=== PATIENT | female | born 1995 | race Caucasian/White ===

== ENCOUNTER 2021-11-02 07:49 | Emergency (ER) | payer SELFPAY ==
[~2021-11-02] VITALS: Ht 170.2 cm; Wt 59.0 kg
[2021-11-02 07:54] VITALS: BP 116/81
--- NOTE | 2021-11-02 07:55 | NUR ---
PT W/C ASSISTED TO BED 12.
[2021-11-02] MEDS ORDERED: TETRACAINE HCL/PF 0.5% OPTH 4 ML BTL OP ONE (08:05)
[2021-11-02] MEDS ORDERED: FLUORESCEIN OPTH STRIP 1 MG OP ONE (08:05)
[2021-11-02] MEDS ORDERED: TOMOMETER 1 DEV DEV MC ONE (08:06)
--- NOTE | 2021-11-02 08:30 | NUR ---
Patient discharged with v/s stable. Written and verbal after care instructions given and explained. Patient verbalized understanding. Ambulatory with steady gait. All questions addressed prior to discharge. Advised to follow up with PMD.
[2021-11-02] MEDS ORDERED: IBUP-2213 PO (08:32)
[2021-11-02] MEDS ORDERED: OFLO5SOL2 LEFT EYE (08:32)
== END 2021-11-02 08:30 | disposition home or self-care (01) ==
LOC: MED 07:49
DX: S05.02XA Injury of conjunctiva and corneal abrasion without foreign body, left eye, initial encounter (principal); Z88.0 Allergy status to penicillin; X58.XXXA Exposure to other specified factors, initial encounter; Y93.89 Activity, other specified; Y92.89 Other specified places as the place of occurrence of the external cause; Y99.8 Other external cause status
CPT/HCPCS: 99283

== ENCOUNTER 2021-11-21 16:10 | Emergency (ER) | payer SELFPAY ==
[~2021-11-21] VITALS: Ht 170.2 cm; Wt 61.2 kg
[~2021-11-21 16:10] MED LIST: IBUP-2213 PO; OFLO5SOL2 LEFT EYE
[2021-11-21 16:32] VITALS: BP 111/79
[2021-11-21] MEDS ORDERED: BACI1PAC6 TP (18:38)
[2021-11-21] MEDS ORDERED: CEPH-588 PO (18:38)
[2021-11-21] MEDS ORDERED: IBUP-1842 PO (18:38)
--- NOTE | 2021-11-21 18:41 | NUR ---
Patient discharged with v/s stable. Written and verbal after care instructions given and explained. Patient alert, oriented and verbalized understanding of instructions. Wheel Chair Assisted with to car. All questions addressed prior to discharge. ID band removed. Patient advised to follow up with PMD. Rx of KEFLEX, MOTRIN, AND BACITRACIN given. Patient educated on indication of medication including possible reaction and side effects. Opportunity to ask questions provided and answered.
[2021-11-21 18:42] VITALS: BP 102/60
== END 2021-11-21 18:41 | disposition home or self-care (01) ==
LOC: MED 16:10
DX: S80.862A Insect bite (nonvenomous), left lower leg, initial encounter (principal); S80.861A Insect bite (nonvenomous), right lower leg, initial encounter; L08.9 Local infection of the skin and subcutaneous tissue, unspecified; Z88.0 Allergy status to penicillin; Z79.899 Other long term (current) drug therapy; W57.XXXA Bitten or stung by nonvenomous insect and other nonvenomous arthropods, initial encounter; Y93.89 Activity, other specified; Y92.89 Other specified places as the place of occurrence of the external cause; Y99.8 Other external cause status
CPT/HCPCS: 99283